=== PATIENT | female | born 1930 | race Caucasian/White ===

== ENCOUNTER 2020-02-21 07:52 | Emergency (ER) | payer MEDICARE, OTHER ==
[~2020-02-21] VITALS: Ht 170.2 cm; Wt 90.7 kg
[~2020-02-21 07:52] MED LIST: ASPIRIN EC325 MG PO; ATENOLOL50 MG PO; OMEPRAZOLE20 MG PO; OXYBUTYNIN CHLOR5 M1 PO; OXYCODONE HCL5 MG PO; SYNTHROID88 MCG PO
== END 2020-02-21 10:39 | disposition home or self-care (01) ==
LOC: ED 07:52
DX: R53.81 Other malaise (principal); M25.571 Pain in right ankle and joints of right foot; M25.561 Pain in right knee; I10 Essential (primary) hypertension; K21.9 Gastro-esophageal reflux disease without esophagitis; E03.9 Hypothyroidism, unspecified; Z87.891 Personal history of nicotine dependence; Z90.49 Acquired absence of other specified parts of digestive tract; Z90.89 Acquired absence of other organs; Z88.0 Allergy status to penicillin; Z79.82 Long term (current) use of aspirin; Z79.899 Other long term (current) drug therapy; W19.XXXA Unspecified fall, initial encounter
CPT/HCPCS: 80053; 84484; 85025; 99284; J7040

== ENCOUNTER 2021-03-15 16:12 | Inpatient (IN) | payer MEDICARE, OTHER ==
[~2021-03-15] VITALS: Ht 170.2 cm; Wt 88.4 kg
[~2021-03-15 16:12] MED LIST changes: +LEVOTHYROXINE100 MCG PO; +MELOXICAM15 MG PO; +METOPROLOL SUCC25 MG PO; +VITAMIN D3125 MC2 PO
[2021-03-15] MEDS ORDERED: MELATIN3 MG PO (16:36)
[2021-03-15] MEDS ORDERED: POLYOX WSR-3011 GM MISC (16:41)
[2021-03-15] MEDS ORDERED: TRAMADOL HCL50 MG PO (16:42)
[2021-03-15] MEDS ORDERED: SEROQUEL25 MG PO (16:42)
--- NOTE | 2021-03-15 20:00 | NUR ---
PT ADMITTED TO ROOM 110, ACCOMPAINED BY HER DAUGHTER RONNELL. PT WAS EXPRESSING HER DISSATISFACTION OF STAFF HAVING TO MOVE HER, YELLING, CUSSING WHILE DAUGHTER ATTEMPTED TO REASSURE PT. PT HAD PAIN IN HER LEGS WHEN STAFF MOVED HER LEGS. ONCE INTO BED AND SETTLED, PT SETTLED DOWN AND ALLOWED VITALS TO BE COMPLETED.
--- NOTE | 2021-03-15 21:00 | NUR ---
ADMISSION HISTORY COMPLETED. DAUGHTER LEFT. BED ALARM PLACED FOR POTENTIAL UNSAFE. PT ABLE TO ANSWER SOME QUESTIONS, WITH DAUGHTER MOSTLY ANSWERING QUESTIONS. PT RESTLESS, LEANS ON THE SIDE RAIL. TRIED A PILLOW, BUT SHE MOVED IT. WILL LAY ON BACK THEN SIT UP TO LEAN. DAUGHTER STATES THIS HAPPENS ALL NIGHT LONG. PT DENIED PAIN.
--- NOTE | 2021-03-15 22:00 | NUR ---
PT AGREED TO TAKE MEDICATIONS, HOWEVER, WHEN MEDICATIONS IN THE APPLESAUCE SHE AGREED TO TAKE, SHE REFUSED. SAID SHE DIDN'T WANT THE APPLESAUCE. MEDICATONS TAKEN OUT, WIPED CLEAN AND ATTEMPTED AGAIN, HOWEVER, SHE CONTINUED TO REFUSE TO TAKE THE MEDICATIONS. WILL TRY AGAIN WITHIN THE HOUR.
--- NOTE | 2021-03-15 22:40 | NUR ---
ASKED PT AGAIN, AFTER SOME VISITING IF SHE WOULD TAKE HER MEDICATIONS. SHE SAID NO. SHE IS CALM, MOVING FROM BED TO SIDE RAIL. ASKED IF SHE HURT SHE SAID MAYBE, OFFERED TYLENOL, SHE SAID NO. DID RUB PT BACK FOR HER. OFFERED AND ACCEPTED WATER. NO COUGHING, OR CLEARING OF THROAT AFTER DRINKING WATER.
--- NOTE | 2021-03-15 23:00 | NUR ---
IN ROOM TO FINISH UP ASSESSMENT. PT UNWILLING TO ANSWER QUESTIONS. CINTHYA GUTIERRES RN PREVIOUSLY ATTEMPTED TO ADMINISTER MEDICATIONS TO PT. ATTEMPTED TO ADMINISTER MEDICATIONS AND PT REFUSED AGAIN. TRIED EXPLAINING THE IMPORTANCE OF THE MEDS AND SHE JUST USED HER HAND TO GESTURE THIS RN AWAY. PT CONTINUES TO LEAN TO THE RIGHT SIDE OF HER BED. WHILE LEANING TO THE SIDE THIS RN WAS ABLE TO LISTEN TOO HER LUNGS, BASES HAD CRACKLES. PT DENIES NEEDS. CALL LIGHT IS CLOSE AND PT IS VISABLE FROM RN STATION.
--- NOTE | 2021-03-15 23:25 | NUR ---
PT CALLED OUT HELP, UPON ENTERING ROOM SHE ASKED FOR HELP PUTTING HER GOWN BACK ON. SHE HAD TAKEN IT OFF, SHE IS NOW COVEREND BACK UP AND DENIES FURTHER NEEDS. CALL LIGHT IS CLOSE.
--- NOTE | 2021-03-16 00:20 | NUR ---
SITTING WITH PT, PT AGREED TO TRY HER MEDICATIONS. ONE AT A TIME SHE SAID. "GIVE ME THOSE DAMN PILLS", SAID NICELY. OVER FEW MIN PT TOOK ALL BUT THE SENNA TABLETS.
--- NOTE | 2021-03-16 00:50 | NUR ---
IN TO CHECK ON PT, PT IS CALLING OUT, PT UNABLE TO ARTICULATE NEEDS, CALLS OUT HELP ME OVER AND OVER WHILE THIS LANDSCAPE AND YARDWORK LABORER IS IN TO COMFORT PT, PT PULLING AT BLANKETS AND GOWN, WILL MONITOR FROM NURSES STATION
--- NOTE | 2021-03-16 01:13 | NUR ---
IN WITH ASSISTANT MANAGER/EMBALMER TO CHANGE PT ATTENDS, NEW CHUX ADDED UNDER PT FOR EXTRA PROTECTION, NO FURTHER NEEDS
--- NOTE | 2021-03-16 01:38 | NUR ---
IN TO GET VITALS
--- NOTE | 2021-03-16 02:10 | NUR ---
PT CONTINUES TO CALL OUT WHILE SHE IS HOLDING ONTO SIDE RAIL WITH EYES CLOSED. CALL LIGHT IS CLOSE AND BED ALARM IS ON.
--- NOTE | 2021-03-16 03:32 | NUR ---
PT IS RESTING WITH EYES CLOSED, RESPRIRATIONS ARE EVEN AND NONLABORED. CALL LIGHT IS CLOSE AND BED ALARM IS ON.
--- NOTE | 2021-03-16 05:18 | NUR ---
CHANGED PT WITH HELP OF LEAF TINNERYOSVANY JENSEN. PT YELLS OUT WHEN TURNED BUT DID BETTER WITH WARM WIPES. SHE WAS INCONTINENT OF URINE, BARRIER CREAM APPLIED AND NEW ATTENDS IN PLACE. IV IS SL AND COVERED WITH GAUZE. VS TAKEN AND ENTERED WITH HELP OF KEIKO LUKE. HR IS TACHY AT 120 AND SPO2 ON RA IS LOW 80% AT TIMES. WHEN TRYING TO PUT NC ON PT YELLS AND STARTS TRYING TO PUNCH. SET UP BLOWBY WITH OXYMASK AND CUP TAPED TO BEDRAIL AND PT IS NOW AT 95% SPO2. WHEN ASKED IF PT WOULD SWALLOW HER THYROID MEDICATION SHE YELLS "NO LEAVE ME ALONE." BED ALARM IS ON AND PT IS VISABLE FROM RN STATION.
--- NOTE | 2021-03-16 06:35 | NUR ---
PATIENT IS AGITATED AND RESTLESS. PATIENT IS REQUIRING OXYGEN. PATIENT CONTINUES TO REMOVE OXYGEN OR CRY OUT WHEN STAFF TRY AND PUT OXYGEN ON HER. PATIENT HAS BLOW BY OXYGEN. RN IS PRESENT IN THE ROOM.
--- NOTE | 2021-03-16 06:56 | NUR ---
PATIENT NOW APPEARS TO BE RESTING PEACFULLY. PATIENT PLACED ON 3.5L NC. PATIENT APPEARS TO BE TOLERATING THE NC.
[2021-03-16] MEDS ORDERED: ATENOLOL50 MG PO (06:58)
--- NOTE | 2021-03-16 07:05 | NUR ---
SHIFT REPORT FROM AGNES RN INCLUDED: pt here for bilateral pneumonia, and is an aspiration risk. pt in late stages of dementia and has been confused, aggitated, and combative since her arrival. pt was given dose of Haldol this morning around 0630, and appears to be calming at this time. pt has been barely able to take "some" of her oral meds and is not taking in food well at this time. pt has not been allowing staff to place the Nasal cannula on her face properly, as she continues to pull it off. pt currently in bed, side rails up for safety, bed alarm on, pt visible from nurses station. pts eyes closed, breathing even and unlabored. call [facility] in reach.
[2021-03-16] MEDS ORDERED: PAIN RELIEF EX500 MG PO (08:20)
[2021-03-16] MEDS ORDERED: LAXATIVE SUPPOS10 MG PR (08:21)
[2021-03-16] MEDS ORDERED: BIOFREEZE118 ML TOP (08:21)
[2021-03-16] MEDS ORDERED: FLEET ENEMA133 ML PR (08:23)
[2021-03-16] MEDS ORDERED: MIRALAX17 GM PO ×2 (08:24→08:25)
[2021-03-16] MEDS ORDERED: SENNA PLUS 8.61 EACH PO (08:25)
--- NOTE | 2021-03-16 08:45 | NUR ---
MED PASS + ASSESSMENT pt unable to take all her morning meds, due to possible choking/aspiration on the tablets. pt was able to take several sips of water prior to medical secretary teacher and was successful. pt able to take two tablets with little difficulty, then couldn't take anymore (two attempts after the first led to coughing and spitting up her pills). pt states "god. no more you stupid shit. I can't take anymore". no more attempts at this time. pt VSS, but pt desats without her oxygen on. pt continued to remove her nasal cannula so an oxymask was placed on 4L and the pt intermittently tolerates this at this time. pt in bed, table and call light within reach. bed alarm on, side rails up for safety, pt visible from nurses station.
--- NOTE | 2021-03-16 09:00 | NUR ---
Attempted to speak with pt and she is unable to answer questions. Called and spoke with granddaughter and then daughter when she arrived Pt uses a wc and is currently on 02. Pt has been declining and is yelling out when needing something. Daughter also states pt has begun yelling and cussing at her. Daughter would like pt to go to [facility] on dc from the hospital Called and spoke with Barrington at [facility]. Pt must return to [place] and complete yearly appts with Cece Santana prior to admission to [facility]. Daughter denies other needs plans on return to [facility] on dc.
--- NOTE | 2021-03-16 09:30 | NUR ---
PHYSICAL THERAPY + MD TO BEDSIDE pt up to chair with 2PA + FWW + gait belt. pt moans and repeats "help me" continuously. pt able to answer questions about pain and reports pain in both calves with touch. pt reports that walking hurts her legs, when asked to clarify she states "everywhere, honey. it hurts everywhere." pt was unable to take pain meds though. pt in chair at this time. pt refuses breakfast. pt attends changed at this time. pt was able to void enough to saturate padding in place. josiane care done and new attends and pad placed. pt continues to call out "help me" intermittently and as soon as she was changed she continues to call out "I need to pee". pt reassured using therapautic communication. pt agitated. pt able to drink several sips of water but continues to refuse her pills. MD Da Silva to the bedside to assess at this time. made aware of pts inability to swallow all her meds safely, and that she is having pain behind both of her calves. pillows placed under knees/calves for comfort. pt denies further needs at this time. table and call light in reach. chair alarm on, pt visible from nurses station.
--- NOTE | 2021-03-16 10:00 | NUR ---
Pt. unable to answer questions. Called and left messge for Antoinette valadez granddaughter.
--- NOTE | 2021-03-16 10:30 | NUR ---
ROUNDING pt in chair, and was just changed by TC OPERATOR and physical therapist Flory. pt still calling out "help me" at this time. when asked how we can help, pt responds with "Oh. I don't know" pt denies pain and nausea, just reports that she wants help but unsure of how we can help. pt in chair, call light in reach, chair alarm on, pt visible from nurses station.
--- NOTE | 2021-03-16 11:30 | NUR ---
UP TO COMMODE + CHANGED ATTENDS + LUNCH + DAUGHTER VISITS pt reports again that she "needs a pot to piss in". pt up to commode with 2PA + FWW. pt able to stand and walk a few steps to commode with walker, pt able to void. Phyllis care done and new attends with padding placed. pt back to chair and positioned to comfort. pt reclined in chair, chair alarm on. pt o2sats 94% on blow-by mask (pt won't always keep the mask on her face, but leaves it just below her mouth/chin). pt encouraged to drink chocolate Ensure. pt given a few bites of fruit and refuses the rest offered. pt refuses her meal. pt encouraged to take a few more sips of her Ensure at this time, and is able to. pt able to swallow sips at this time, then refuses the rest. pt in chair, left to visit with her daughter at this time. chair alarm on, call light in reach, pt visible from nurses station.
--- NOTE | 2021-03-16 12:30 | NUR ---
ROUNDING pt in chair, resting with eyes closed, breathing even and unlabored, table and call light within reach. chair alarm on, pt visible from nurses station.
--- NOTE | 2021-03-16 13:23 | NUR ---
ROUNDING pt in chair, resting with eyes closed, breathing even and unlabored, table and call light within reach. chair alarm on, pt visible from nurses station.
--- NOTE | 2021-03-16 14:25 | NUR ---
RESPONDING TO CHAIR ALARM pt was able to design printing machine setter front of her chair, without any assisstance. pt stopped and encouraged to sit back down. pt denies that she needs the commode. pt calm and pleasant at this time. pt denies pain, legs elevated as she reclined in chair, pillow under legs. pt seeming to have a moment of clarity, asking where she is and when told, she was curious why she was here. pt reoriented to place and event, pt responding with "well thats odd. I was fine yesterday. that doesn't make sense." pt in chair, chair alarm on, table and call light in reach, pt visible from nurses station.
--- NOTE | 2021-03-16 15:30 | NUR ---
ASSESSMENT pt assessment complete, VSS. pt seems to be more herself at this time, speaking clearly and appropriate to context. pt is not cussing or yelling or angry at this time, but calm and cooperative with cares. pt in chair, table adn call light in reach, chair alarm on, pt visible from nurses station.
--- NOTE | 2021-03-16 16:00 | NUR ---
PATIENT MEETS WITH SPEECH THERAPY AT THIS TIME
--- NOTE | 2021-03-16 17:00 | NUR ---
ROUNDING pt resting in chair, eyes closed, breathing even and unlabored, table and call light in reach, chair alarm on, pt visible from nurses station.
--- NOTE | 2021-03-16 19:36 | NUR ---
I COULDN'T GET PATIENT'S TEMP. DO TO HER BEING UPSET. NURSE SAID DON'T WORRY ABOUT IT.
--- NOTE | 2021-03-16 19:38 | NUR ---
PATIENT WAS SITTING IN HER CHAIR MOST OF THE DAY. PATIENT IS NOW IN BED. WE HAD TO DRU HER. WE ALSO CHANGED HER. PATIENT DID USE THE BSC. A COUPLE TIME TODAY. IT TOOK TWO OF US. WE ALSO MEGAN CARED.
--- NOTE | 2021-03-16 19:42 | NUR ---
PATIENT NEEDS BED ALARM AND CHAIR.
--- NOTE | 2021-03-16 20:29 | NUR ---
pt resting, eys closed, blow by o2 in place. sats were 85%, sats at his tiime 89%, calm, iv abx infusing. bed alarm on.
--- NOTE | 2021-03-16 21:21 | NUR ---
pt spit meds out, very belligerent, screaming, confused, hollering, chroniuc 'please help me". blow by mo2 at 15L in place, sats 92-80%, wont keep ot mask on. semi coop with assessment. IV l hand covered with Kerlix, coban and danya wrap, trying to pull iv sl off. unable to redirect, pinching and hitting. attends on.
--- NOTE | 2021-03-16 22:00 | NUR ---
IN TO ASST RNs WITH CHANGING PTs ATTENDS, NO FURTHER NEEDS, RN IN TO SEE IF PT WANTED HER MEDS
--- NOTE | 2021-03-16 22:37 | NUR ---
PT WAS CALLING OUT, ENTERED HER ROOM AND SHE WAS SPILLING HER WATER CUP ON THE FLOOR. PT SAID "HELP ME" THIS RN TALKED WITH PT AGAIN ABOUT TAKING HER PILLS TO HELP HER RELAX AND PT AGREED. SHE WAS ABLE TO TAKE 3 PILLS:LOPRESSOR, MELATONIN AND SEROQUEL. PT IS WATCHING TV AT THIS TIME WITH O2 ON BLOWBY. BED ALARM IS ON AND CALL LIGHT IS CLOSE.
--- NOTE | 2021-03-16 23:25 | NUR ---
PULLING AT IV SITE, AXEL, SEMI REDIRECTABLE. BLOW BY O2 AT BEDSIDE. NURSING STAFF AT BEDSIDE, BED ALARM ON
--- NOTE | 2021-03-17 00:12 | NUR ---
BED ALARM SET OFF, PT LEANING ON SIDERAIL 'LOOKING FOR BUTTON TO RAISED THE BED' SHOWED PT THE DIFFERENT CONTROLS TO USE, PT AGREEABLE AT THIS TIME, PT ACCEPTED AN ICE WATER REFILL WHEN ASKED IF SHE NEEDS ANYTHING ELSE, NO FURTHER NEEDS, PT IS PLESENT WITH INTERACTIONS
--- NOTE | 2021-03-17 00:54 | NUR ---
PT CALLED OUT, IN TO CHECK ON PT, PT HAS QUESTIONS ABOUT HER STAY, AWNSWERED WHAT I COULD, TOLD PT I WILL HAVE RN ROUND WITH HER
--- NOTE | 2021-03-17 01:17 | NUR ---
PT IS AWAKE IN BED AND PLEASANTLY CONFUSED. SHE ASKED WHY SHE IS HERE AND WHAT WE ARE DOING. EXPLAINED THAT WE ARE TRYING TO GET HER BETTER WITH ANTIBIOTICS. PT AGREEABLE TO TAKING THE ABX SHE DIDNT TAKE EARIER. PT TOOK HER ANTIBIOTICS PO 1 AT A TIME. SHE IS NOW DRINKING A STRAWBERRY ENSURE AND DENIES FURTHER NEEDS. TALKED WITH PT ABOUT WEARING O2 AND SHE IS AGREEABLE BUT UPON TRYING TO PUT NC ON SHE PULLED BACK AND SAID MAYBE LATER. O2 STILL ON BLOWBY. BED ALARM IS ON AND CALL LIGHT IS CLOSE.
--- NOTE | 2021-03-17 03:13 | NUR ---
pt calmer, alert to self, pulled danya covering L hand. SL intact. on blowby O2, lungs with exp crackles, sats 89% Took o2 sat off from L toes, declines to have it place it back, declines to have O2 mask on, refused pleasantly " No I do not like it over my face", reason explained, "I said NO!, and I meant NO, NO is NO!. following instructions. tolerated sips of ensure attend were dry. bed alarm on. HOB elevated. cont to monitors SL placement as pt picks at it
--- NOTE | 2021-03-17 03:50 | NUR ---
REPOSITIONED PT WITH HELP OF KEIKO LUKE. PT WAS WANTING TO GET UP, REMINDED HER THAT IT IS NIGHT TIME. SHE WAS INSISTANT FOR A WHILE THEN LAYED DOWN. SHE IS QUIET AT THIS TIME WITH EYES CLOSED, O2 ON BLOWBY. CALL LIGHT IS CLOSE AND BED ALARM IS ON.
--- NOTE | 2021-03-17 03:50 | NUR ---
IN WITH RN TO HELP PT REPOSITION IN BED, BOOSTED PT AND FIXED LINENS UNDER PT, BED ALARM BACK ON, FRESH ICE WATER PROVIDED, PT FREELY SIPPING ON WATER AT BEDSIDE, PT REMAINS COOP WITH CARE AT THIS TIME
--- NOTE | 2021-03-17 05:25 | NUR ---
pt would not let Lab draw blood. hollering and pulled arm, procedure explained, not very receptive. Started screaming when trying to get a bp. SL L hand intact. Attends dry. Moves upper body in bed. bed alarm on
--- NOTE | 2021-03-17 05:27 | NUR ---
Pt has been combative, irritable and verbally and physically aggressive toward staff. Declines O2 mask, O2 blowby at bedside close to face, sasts range from 80-92%, tachy pulse. Exp crackles bilat auscultated. no cough. was pleasant and semi coop at time later part of shift. Incontinent of urine, attend changed. tolerating fluids well, earlier on shift spit meds out. retried and took partial 2100 scheduled meds. Continues to holler "Help me, help me" even when someone is in room holding hand. has tried to dislodge iv this shift.
--- NOTE | 2021-03-17 06:18 | NUR ---
PT PULLED IV OUT, CATH TIP INTACT. PRESSURE APPLIED WITH GAUZE. GAUZE AND TAPE IN PLACE. CALL LIGHT IS CLOSE AND BED ALARM IS ON.
--- NOTE | 2021-03-17 08:00 | NUR ---
Repositioned patient in bed, breakfast in front. Face and hands washed. Food on tray was overwhelming, so removed and replaced with pudding and applesauce. Bed alarm on for safety, call light in reach.
--- NOTE | 2021-03-17 08:44 | NUR ---
AM medications administered. Crushed in applesauce. Takes medications with assistance, does spit out protonix and refuses to take it. Voices her concern with her confusion this AM. re-oriented multiple times while assessing patient. Allows this nurse to replace O2 per NC at 3L/min.
--- NOTE | 2021-03-17 09:30 | NUR ---
PATIENT QUITE CONFUSED. STAFF IN WORKING WITH PATIENT.
--- NOTE | 2021-03-17 09:46 | NUR ---
attempt to give vibramycin, refuses medications stating "won't you just leave me alone."
--- NOTE | 2021-03-17 09:58 | NUR ---
Attempt again to give vibramycin, takes without difficulty at this time.
--- NOTE | 2021-03-17 11:15 | NUR ---
SITTING UP IN RECLINER, O2 REMAINS IN PLACE. ALLOWED TO REST.
--- NOTE | 2021-03-17 14:59 | NUR ---
PATIENT SITTING UP IN RECLINER. REMOVED OXYGEN, O2 SATS 85-88% ON ROOM AIR. O2 REPLACED AT 2.5 L/MIN PER NASAL CANULA. PATIENT STATES SHE WANTS TO GO HOME. ATTEMPT TO RE-ORIENT.
--- NOTE | 2021-03-17 15:09 | NUR ---
PATIENT AWAKE IN CHAIR, SBA WITH FWW TO CHANGE BRIEF. VITALS AND I&OS CHARTED, PATIENT C/O CONFUSION AND RELUCTANT TO WEAR NC, YOSVANY SAMUEL EDUCATED PATIENT, 2.5 LNC ON NOW. CHAIR ALARM ON FOR SAFETY
--- NOTE | 2021-03-17 17:35 | NUR ---
PATIENT RESTING IN CHAIR, EYES CLOSED, WOKE TO VOICE AND TOUCH ON ARM. VITALS AND I&OS CHARTED. PATIENT KEEPS TAKING NC OUT OF HER NOSE, STATES "IT DRIVES ME CRAZY" RN AWARE. CALL LIGHT IN REACH, CHAIR ALARM ON FOR SAFETY.
--- NOTE | 2021-03-17 18:06 | NUR ---
Patient up in chair most of today. Continent and incontinent of urine today. Difficulty keeping oxygen on patient as she is confused. O2 per NC at 2.5L/min. Tylenol given this AM for generalized discomfort. 1-2 assist to bedside commode. Antibiotic changed to oral vibramycin. Medications given crushed in applesauce this morning with some difficulty following direction.
--- NOTE | 2021-03-17 18:17 | NUR ---
PATIENT SITTING UP IN BED, GOWN AND NC OFF. THIS RECOVERY ROOM NURSE REDRESSED HER, AND PLACED NC IN NOSE. PATIENT AGREED TO ELEVATE LEGS. CALL ARNOLD SULLIVAN, CHAIR ALARM ON FOR SAFETY
--- NOTE | 2021-03-17 20:49 | NUR ---
pt in bed, o2 2.5L NC in place, awakes easily, declines to have vitals/BP takes, at this time, sats 96%, R18. declines meds at this time, will continues to ask. lungs assess but declines to let this RN assess her abd. scabbed areas over le healing, fresh scratched area over lateral hip radha x2 dry. In bed, bed alrm on. no distress at this time
--- NOTE | 2021-03-18 00:47 | NUR ---
resting, eyes closed, hob elevated, took nc off, bed alarm on, fluids at bedside
--- NOTE | 2021-03-18 02:33 | NUR ---
RESTING, EYES CLOSED, O2 IN PLACE AT 2.5LNC. LEGS ELEVATED, HOB ELEVATED, NO DISTRESS. BED ALARM ON, FLUIDS AND CALL LIGHT AT BEDSIDE
--- NOTE | 2021-03-18 04:15 | NUR ---
IN WITH RN TO CHANGE PT, BOOSTED, AND VITALS DONE
--- NOTE | 2021-03-18 04:24 | NUR ---
ptaelham, took o2 off, sats 86%, agreed to let us take her vitals, declined to have us take her temp, oral/axillary or forehead. Repositioned in bed, Incontinent of large amount of urine. clean attends, barrier cream applied. procedure explained. pt agreed to take her abx, seroquel, bp med and both abx. placed on applesauce and pt feed self and then hand picked the abx and placed on her mouth. was very cooperative. Pt agreed to let this RN complete her assessment, lungs clear, dim at bases, Tachy heart rate at 117. pt thanked. Will notify and incoming RN of meds given 7hrs later after pt refusing several times and finally agreed to take meds
--- NOTE | 2021-03-18 05:17 | NUR ---
PT HAS SLEPT THIS SHIFT, MORE PLEASANT, STILL OCASSIONAL IRRITABLE BEHAVIOR. KEPT O2 ON 2.5L MOST OF THIS SHIFT, TAKES OFF SATS 83-96%. DECLINED VITALS, ASSESSMENTS AND MEDS AT BEGINING OF SHIFT. ASKED SEVERAL TIMES ABOUT MEDS AND DECLINED. THIS AM ACCEPTED TO LET THIS RN DO VITALS, AND ASSESSMENT, LUNGS SO MUCH IMPROVED, CLEAR -DIM AT BASES, ACCEPTED TO TAKE 2100 AND 0100 MEDS. BP MED, BOTH ABX, AND SEROQUEL, DECLINED TO REST, ASKED ABOUT THYROID MED AND SHE DECLINED TO TAKE THAT MED TOO. MORE ALERT, EASILY REDIECTABLE AND PLEASANT. WAS INCONTINENT OF URINE, SKIN CARE AND NEW ATTENDS INPLACE. WEAK UNSTEADY GAIT. BED ALARM ON. CURRENTLY O2 2.5L ON AT THIS TIME.
--- NOTE | 2021-03-18 06:18 | NUR ---
BED ALARM SOUNDED. THIS REGIONAL MAINTENANCE MANAGER ENTERED ROOM AND PATIENT REFUSED TO PUTTING NASAL CANUAL ON. PATIENT STATES "WON'T YOU JUST LEAVE ME ALONE". LEGS ASSISTED BACK IN BED. BED ALARM ON.
--- NOTE | 2021-03-18 06:24 | NUR ---
IN TO SEE WHAT PT NEEDED, PT NEEDED A SIP OF WATER, PROVIDED, PT PROMPTLY DISMISSED MY HELP ONCE FINISHED WITH HER WATER
--- NOTE | 2021-03-18 06:32 | NUR ---
PT HAS SLEPT THIS SHIFT, MORE PLEASANT, STILL OCASSIONAL IRRITABLE BEHAVIOR. KEPT O2 ON 2.5L MOST OF THIS SHIFT, TAKES OFF SATS 83-96%. DECLINED VITALS, ASSESSMENTS AND MEDS AT BEGINING OF SHIFT. ASKED SEVERAL TIMES ABOUT MEDS AN DECLINED. THIS AM ACCEPTED TO LET THIS RN DO VITALS, AND ASSESSMENT, LUNGS S MUCH IMPROVED, CLEAR -DIM AT BASES, ACCEPTED TO TAKE 2100 AND 0100 MEDS. BP MED, BOTH ABX, AND SEROQUEL, DECLINED TO REST, ASKED ABOUT THYROID MED AN SHE DECLINED TO TAKE THAT MED TOO. MORE ALERT, EASILY REDIECTABLE AND PLEASANT. WAS INCONTINENT OF URINE, SKIN CARE AND NEW ATTENDS INPLACE. WEAK UNSTEADY GAIT. BED ALARM ON. CURRENTLY O2 2.5L ON AT THIS TIME. TAKES OFF AND ON. TOOK ATTENDS OFF, BACK ON, VERY IRRITABLE MOOD THIS AM, TRYING TO GET OUT OF BED. EASILY REDIRECTABLE. IN BED, BED ALARM ON
--- NOTE | 2021-03-18 06:51 | NUR ---
PT AXEL "HELP ME, PLEASE HELP ME, RONNELL, RONNELL!" NOT VERY RECEPTIVE, VERBALLY INAPPROPRIATE. IN BED, TOOK O2 NC OFF, BLOW BY O2 ON. BED ALARM ON. PROCEDURE EXPLAINED, NOT RECEPTIVE
--- NOTE | 2021-03-18 07:26 | NUR ---
dr bingham notified via phone about meds being given 7 and 3 hours late as pt had declined all night and she finally agreed to take her seroquel both abx and bp med . "Oh, ok", no new orders, incoming RN notified too.
--- NOTE | 2021-03-18 08:25 | NUR ---
Lying in bed. Assist to reposition to eat breakfast. Begins feeding self after assessment completed. Denies other needs at this time.
--- NOTE | 2021-03-18 11:20 | NUR ---
Bed bath completed. AM medications given. Takes without difficulty, one medication at a time. Assist into recliner. pin point sized open area to right buttock noted. Left open to air due to frequent incontinence.
--- NOTE | 2021-03-18 11:26 | NUR ---
AFTER NURSE AND I GOT HER VITALS DONE. WE GAVE HER A BED BATH AND SHAMPOOED HER HAIR. ALSO WE TRANSFERED HER FROM HER BED TO HER CHAIR. PATIENT IS NOW SITTING IN HER CHAIR WITH CHAIR ALARM ON AND SLEEPING. GOT HER FRESH ICE WATER.
--- NOTE | 2021-03-18 14:59 | NUR ---
Patient up in recliner. Lethargic. Refuses to stand to ambulate to bed, does not open eyes. Uche lift used to assist patient to bed, josiane-care completed. Yells out, "Help" the entire time cares are provided. Also attempts to hit staff while cares are provided. Repositioned with pillows for support to remove pressure off right buttock. Son in room to see patient after cares completed.
--- NOTE | 2021-03-18 17:31 | NUR ---
Patient up in chair this AM. Bed bath completed today. Lethargic this afternoon. Uche lift used to return patient to bed this afternoon due to patient refusing to stand. No PRN medications given today. Staff assist with meals. Combative X1 today and yelled out only as cares were being provided.
--- NOTE | 2021-03-18 19:46 | NUR ---
Resting, eyes closed, no distress, blow by O2 close to face. bd alarm on
--- NOTE | 2021-03-18 20:10 | NUR ---
pt allowed this RN to complete assessment. on blowby, sats 96%, 104P, R , temp 99. lungs with r sided crackles and dim at bases. attends dry, scabbing over hips and le healing. drowsy, grabbed water jug and drank w/o problems, was irritable, but followed instructions. declined to have me take BP or to take meds, will continue to ask. Bed alarm on
--- NOTE | 2021-03-18 20:33 | NUR ---
Pt resting in bed with eyes closed. Respirations even and unlabored. Pt appears to be sleeping. Bed alarm active. Call light in reach. Room in view of rn station.
--- NOTE | 2021-03-18 20:52 | NUR ---
PER PRIMARY RN, PT REFUSING NIGHT TIME MEDICATIONS. MD TO FLOOR FOR ROUNDS. NOTIFIED OF PT'S REFUSAL TO TAKE MEDICATIONS. MD STATES NOT TO OFFER MEDICATIONS EXCEPT FOR SEROQUEL AFTER 0100. MD STATES THAT HE DOESNOT NEED FURTHER NOTIFICATION THIS SHIFT OF PT'S REFUSAL TO TAKE MEDICATIONS.
--- NOTE | 2021-03-18 22:03 | NUR ---
REPEATER CHIEF TO ROOM FOR BED ALARM SOUNDING, PT FOUND WITH FEET OVER THE EDGE OF THE BED. PT ASSISTED BACK INTO BED. STATES THAT SHE WOULD LIKE TO REST. OFFERED PT HER PILLS, EXPLAINED WHAT MEDICATIONS ARE FOR. PT AGREES. PT TAKES ALL MEDICATIONS APPROPRIATELY FOR THIS REPEATER CHIEF. DENIES FURTHER NEEDS. BED ALARM ACTIVE. ROOM IN VIEW OF RN STATION. CALL LIGHT IN REACH.
--- NOTE | 2021-03-18 23:40 | NUR ---
HEARD PATIENT CALL FOR HELP. PATIENT STATED "I NEED TO PEE". THIS PARACHUTE CUSHION INSTALLER CHECKED THE ATTENDS AND ALREADY WET. THIS PARACHUTE CUSHION INSTALLER AND PRIMARY RN CINDI CLEANED AND CHANGED PATIENT'S ATTENDS. PATIENT REPOSITIONED. BED ALARM ON.
--- NOTE | 2021-03-19 00:39 | NUR ---
RESTING EYES CLOSED, BLOW BY O2 CLOSE TO FACE, NO DISTRESS, BED ALARM ON, FLUIDS AT HANDS REACH.
--- NOTE | 2021-03-19 04:22 | NUR ---
Resting, eyes closed, blowby O2 close to face. spot checks 95% P80 R16, no distress. taking gown off, covered up, goes back to sleep. bed alarm on, fluids and call light at hands reach, tolerating sips of fluids
--- NOTE | 2021-03-19 05:55 | NUR ---
Pt took meds last night, declined O2 NC, blow by close to face, sats mid 90%, semi coop with assessment and vitals. Lungs with LL dim and R with exp crackles. Incontinent of urine, attends inplace, barrier crean/skin care done. Bed alarm on. tolerating fluids well. Continues to have irritable, angry mood all procedures explained,
--- NOTE | 2021-03-19 06:31 | NUR ---
declined Thyroid med, very irritable mood "No, get the hell away from me, bye bye", screaming. will try again later. Daughter called to get her daily report about mother.
--- NOTE | 2021-03-19 07:00 | NUR ---
REPORT RECEIVED, PT AWAKE RESTING IN BED. BED ALARM ON. PT STATES NO NEEDS. IN VIEW OF NURSES STATION, WILL CONTINUE PLAN OF CARE
--- NOTE | 2021-03-19 08:00 | NUR ---
Scheduled medications administered, pt transfered to chair with assistance of CUSTOMER SERVICE ADMINISTRATOR and FWW. Pt uses BSC, x1 incontinence. Pt agitated with staff, requires encouragement and redirection.
--- NOTE | 2021-03-19 10:21 | NUR ---
Pt transferred back to bed with assistance of PT. Able to walk with FWW to bed. 02 via oxymask on, pt SPO2 at 99%. Resting in bed with eyes closed, breathing even and unlabored. Pt family at bedside, all questions answered and plan of care discussed.
--- NOTE | 2021-03-19 11:23 | NUR ---
Pt resting in bed with eyes closed. Oxymask in place, pt breathing even and unlabored. Bed alarm on, in view of nurses station.
--- NOTE | 2021-03-19 14:43 | NUR ---
PATIENT UP TO BATHROOM FROM BED THEN TO CHAIR, 1PA FWW. RN IN ROOM AT THIS TIME. MEGAN CARE DONE. PATIENT NOW IN CHAIR RESTING. CHAIR ALARM ON. CALL LIGHT IN REACH. NO FURTHER NEEDS AT THIS TIME.
--- NOTE | 2021-03-19 15:15 | NUR ---
Pt resting in chair, son at bedside. No apparent needs at this time, pt continually agitated with staff and asks this RN and CUSHION ASSEMBLER to leave the room several times.
--- NOTE | 2021-03-19 16:30 | NUR ---
PATIENT SITTING UP IN HER CHAIR. ELMA AND I WENT IN TO CHECK TO SEE IF SHE NEEDED TO USE THE BATHROOM. OR IF SHE WAS INCONT. SHE WOULD NOT LET US CHECK. SHE WAS ALSO TRYING TO GET OUT OF HER CHAIR. CHAIR ALARM IS ON. AND HER FEET ARE UP.
--- NOTE | 2021-03-19 17:42 | NUR ---
PATIENT BECAME COMBATIVE WHILE DOING B/P. RESULTS LOW NOTIFIED RN. OFFERED TO USE THE BATHROOM PATIENT STATED NO. HELPED PATIENT BACK TO BED. PATIENT ASKED STAFF TO RUB HER BACK BEFORE INTO BED. PATIENT REFUSED PILLOW FOR ROTATION.
--- NOTE | 2021-03-19 21:00 | NUR ---
pt awake, irritable behavior, declines to use O2, declines BP. Repositioned in bed, HOB elevated. At first stated yes when asked if she wanted to take meds. then meds were p[laced in her hands for her to take, and she gave them back to me, "Why should I take this, you take them for me". reason for each med explained and stated/yelled, "get away from me". was Coop with lettin me do assessment. will try again
--- NOTE | 2021-03-19 23:25 | NUR ---
pt awake, accepted to take meds, took meds well, allowed me to take bp, too. coop. repositoned in bed
--- NOTE | 2021-03-20 00:22 | NUR ---
Resting, eyes closed, no distress, hob elevated, on blow by O2, bed alarm on
--- NOTE | 2021-03-20 02:08 | NUR ---
very anxious, reassured, c/o 7/10 back and general pain, medicated with 10mg Oxycontin. repositoned in bed, attend dry
--- NOTE | 2021-03-20 04:14 | NUR ---
resting, no distress, eyes closed. call light at bedside
--- NOTE | 2021-03-20 04:50 | NUR ---
DECLINES TO HAVE ASSESSMENT DONE AT THIS TIME, GOES BACK TO SLEEP
--- NOTE | 2021-03-20 04:54 | NUR ---
PT TOOK HER MEDS AFTER MUCH COAXING, WAS COOP WTIH ASSESSMENTS AT BEGINING OF SHIFT, DECLINED SECOND SHIFT ASSESSMENT. IRRITABLE VERBAL MOOD. EASILY REDIRECTABLE, REPOSITIONED IN BED, INCONTINENT OF URINE, NOT VERY COOP WHEN CHANGING. CONT TO DECLINE TO WEAR O2 NC/MASK. BLOW BY CLOSE TO FACE AT TIMES BUT PT RIPPED OFF FROM WHERE IT WAS. ON ROOM AIR. LUNGS MUCH BETTER, STILL CRACKLES R SIDE, LEFT DIM BUT BETTER. LE ELEVATED. KEPT TAKING GOWN AND COVERS OFF, REPLACED. SLEPT MOST OF THIS SHIFT. PT TO BE RELEASED BACK TO [facility] TODAY.
--- NOTE | 2021-03-20 05:21 | NUR ---
pt incontinent of urine, attends and gown changed, skincare done. repositioned inbed, not very coop, pinching and screaming, procedure explained, not very cooperative. onroom air, ripped blow by o2 of, room air was 88-90%. Declined to take thyroid med, offered twice. will try again and notify incoming nurse. calmer now.
--- NOTE | 2021-03-20 07:00 | NUR ---
REPORT RECEIVED, PT RESTING IN BED AND SHOWING SIGNS OF CONFUSION SUCH UNDRESSING HERSELF, CALLING OUT. STAFF ATTEMPTING TO CONSOLE AND REASSURE. WILL CONTINUE PLAN OF CARE
--- NOTE | 2021-03-20 08:00 | NUR ---
Pt in bed, slouching toward side of bed and continues to remove gown, call for help. This RN and EMERGENCY PLANNER in room to assist pt. Reassured safety, explained plan of care, attempted to reorient. Pt adamant that she is not in a hospital, refuses all care and displays agitation with staff. This RN able to administer PO medication before pt becomes increasingly agitated, attempted to reposition for comfort and allowed to rest at this time. All side rails up for safety, bed alarm in place. Will continue to monitor.
--- NOTE | 2021-03-20 08:29 | NUR ---
PATIENT DID NOT WANT BREAKFAST. HAD A DRINK OF APPLE JUICE. VITALS DONE AND CHARTED. O2 WAS A LITTLE LOW. RN APPLIED O2. PATIENT GIVEN WARM WASHCLOTH. THIS ENGINEER/CONDUCTOR AND RN OFFERED TO HELP PATIENT UP TO CHAIR AND TO BATHROOM PATIENT REFUSED. PATIENT STATES NOTHING NEEDED AT THIS TIME.
[2021-03-20] MEDS ORDERED: METOPROLOL SUCC50 MG PO (09:32)
[2021-03-20] MEDS ORDERED: QUETIAPINE FUMA25 MG PO (09:33)
--- NOTE | 2021-03-20 09:57 | NUR ---
OFFERED PATIENT TO GET UP IN CHAIR AND PATIENT HAS REFUSED EACH TIME. WILL REAPPROACH AT ANOTHER TIME.
--- NOTE | 2021-03-20 10:00 | NUR ---
Pt transferred to chair with assistance of this RN and MACARONI MAKER, able to use FWW and tolerated well. Pt dressed in own clothes, hair combed and fresh water provided. Pt in better spirits. Daughter at bedside.
--- NOTE | 2021-03-20 10:11 | NUR ---
office support specialist and rn assisted pt. to get up to chair. assted pt. to get dressed. no other needs at this time
--- NOTE | 2021-03-20 10:12 | NUR ---
[facility] IS AWARE OF DISCHARGE AND IS ABLE TO TAKE PATIENT BACK TODAY. UPDATED STAFF. THEY STATED PATIENT COULD POSSIBLY GO IN W/C CARERIDE TO FACILITY AT DISCHARGE AND THEY WILL ASK DAUGHTER IF THAT IS OK OR IF SHE WANTS TO TAKE HER. DOMINGA DUARTE CALLED AND HE IS WITH DAUGHTER WHO IS AWARE PATIENT IS RETURNING TODAY. HE IS DISCUSSING HOSPICE WITH DAUGHTER FOR POSSIBLE FUTURE CHOICE. HE WILL LET ME KNOW IF SHE HAS QUESTIONS AND I CAN MEET WITH HER.
--- NOTE | 2021-03-20 11:10 | NUR ---
SPOKE WITH PATIENT AND DAUGHTER RONNELL IN ROOM. DISCUSSED DISCHARGE TODAY. THE ONLY QUESTION RONNELL HAD WAS ABOUT POSSIBLE HOSPICE. WE DISCUSSED THAT HOSPICE CANNOT BE ORDERED AT [facility], BUT THEY DO HAVE A COMFORT ONLY STATUS. WE DISCUSSED THAT ON THIS ORDER MEDICARE WILL ONLY COVER A WEEK. SHE STATES UNDERSTANDING. SHE STATES PATIENT HAS APPT WITH PCP ON SATURDAY AND IF CLEARED WILL BE GOING TO [facility] AND THEN SHE WILL BE ON HOSPICE. WE DISCUSSED HOW PATIENT WILL RETURN TO [place]. SHE STATES SHE CANNOT GET PATIENT INTO HER CAR IT SITS TO LOW. HOSPITAL WILL CALL FOR W/C CARERIDE. QUESTIONS ANSWERED. PATIENT IS ALERT AND IN CHAIR. SHE IS PLEASANT AND IS NOT ABLE TO FOLLOW DETAIL QUESTIONS. ORDERS WERE FAXED TO [place] BY WORK FROM HOME. I FAXED [facility]. CONFIRMATION RECEIVED. STAFF UPDATED.
--- NOTE | 2021-03-20 11:29 | NUR ---
PATIENT UPIN CHAIR WITH DAUGHTER IN THE ROOM WAITING FOR D/C . PATIENT STATES NOTHING IS NEEDED AT THIS TIME
--- NOTE | 2021-03-20 12:24 | NUR ---
ORDERS/CLINICALS LEFT IN [facility] AT DESK FOR NURSES. OK GIVEN BY [facility] FOR TRANSFER.
--- NOTE | 2021-03-20 13:22 | NUR ---
CONNECTED WITH PT'S DAUGHTER RONNELL STANDING OUTSIDE STAFF CARED FOR PT. RONNELL INFORMED ME THAT PT IS TO BE DC'D TODAY TO [facility] ON COMFORT CARE. SHE WAS INTERESTED IN KNOWING IF HOSPICE CAME TO [facility]. INFORMED HER THAT [facility] WILL DO THEIR OWN COMFORT CARE. FAMILY SEEMS TO BE IN AGREEMENT THAT THIS IS THE RIGHT PATH FOR PT. RONNELL MENTIONED HOW DIFFICULT IT IS FOR HER TO SEE THE DEMENTIA TAKE OVER HER MOTHER. GAVE ENCOURAGEMENT, WILL FOLLOW NEEDED
--- NOTE | 2021-03-20 13:36 | NUR ---
PATIENT RESTING WHEN THIS FLAT SCREEN WORKER CAME IN. MEGAN CARE DONE. VITALS AND I&O'S DONE AND CHARTED.
--- NOTE | 2021-03-20 15:41 | NUR ---
PATIENT APPEARS TO BE SLEEPING WHEN THIS RESEARCH PHYSIOLOGIST DID ROUNDS
== END 2021-03-20 16:15 | DRG 177 ==
LOC: ED 16:12 → MS 19:04
PROVIDERS: ADMIT Student in an Organized Health Care Education/Training Program; ATTEND Student in an Organized Health Care Education/Training Program
DX: J69.0 Pneumonitis due to inhalation of food and vomit (principal); J96.01 Acute respiratory failure with hypoxia; Z20.822 Contact with and (suspected) exposure to COVID-19; F03.90 Unspecified dementia, unspecified severity, without behavioral disturbance, psychotic disturbance, mood disturbance, and anxiety; R45.1 Restlessness and agitation; I10 Essential (primary) hypertension; K21.9 Gastro-esophageal reflux disease without esophagitis; E03.9 Hypothyroidism, unspecified; Z66 Do not resuscitate; Z88.0 Allergy status to penicillin; Z79.899 Other long term (current) drug therapy; Z79.1 Long term (current) use of non-steroidal anti-inflammatories (NSAID); Z79.82 Long term (current) use of aspirin; Z79.891 Long term (current) use of opiate analgesic
CPT/HCPCS: 36415; 71045; 80048; 80053; 81001; 83735; 83880; 84484; 85025; 85379; 92526; 92610; 94760; 97116; 97162; 97165; 97530; 99285-25; C9803; J0456; J0696; J1630; J1650; J1940; J7030; J7060; U0003